=== PATIENT | male | born 1930 | race Caucasian/White ===

== ENCOUNTER 2017-03-22 23:19 | Emergency (ER) | payer MEDICARE, BC ==
[~2017-03-22] VITALS: Ht 177.8 cm; Wt 90.7 kg
--- NOTE | 2017-03-22 23:19 | NUR ---
PT BIB [facility], PER EMS PT BECAME ALTERED ACCORDING TO AROUND 2300. PT HAS NOTED LEFT SIDE DEFICITS, PT ACTIVELY VOMITING COFFEE GROUND EMESIS. DR NAJERA AT BEDSIDE. CODE STROKE CALLED. PT ARRIVED AT 2314, PT TO CT AT 2317.
--- NOTE | 2017-03-22 23:20 | NUR ---
PT ARRIVAL TIME: 2314 CALLED CODE STROKE: [address]: 2318 DELAY IN REGISTRATION. TOLD MOVIE SHOT CAMERAMAN CANT DO CT HEAD WITHOUT PT IN SYSTEM
[2017-03-22] MEDS ORDERED: ETOMIDATE 2 MG/ML VIAL IV ONE (23:22)
[2017-03-22] MEDS ORDERED: ROCURONIUM BROMIDE 50 MG/5 ML IV ONE (23:22)
--- NOTE | 2017-03-22 23:25 | NUR ---
PT BACK FROM CT. MD AT BEDSIDE.
--- NOTE | 2017-03-22 23:26 | NUR ---
CALLED [facility] FOR POSSIBLE INTUBATION
--- NOTE | 2017-03-22 23:29 | NUR ---
RT AT BEDSIDE
[2017-03-22] MEDS ORDERED: ONDANSETRON HCL/PF 4 MG/2 ML VIAL IVP ONE (23:30)
[2017-03-22] MEDS ORDERED: PANTOPRAZOLE 80 MG in IV NS 0.9% 500 ML IV ONE (23:30)
[2017-03-22] MEDS ORDERED: PANTOPRAZOLE 80 MG in IV NS 0.9% 100 ML IV ONE (23:30)
--- NOTE | 2017-03-22 23:30 | NUR ---
MD AT BEDSIDE FOR INTUBATION. SEE INTUBATION NOTES. RT AT BEDSIDE TO ASSIST.
--- NOTE | 2017-03-22 23:36 | NUR ---
SPOKE TO RADIOLOGIST DR. BAR AND WAS TOLD OF ACUTE ICH W/ MIDLINE SHIFT. INFO RELAYED TO DR. NAJERA WHO IS CURRENTLY INTUBATING THE PT.
[2017-03-22] MEDS ORDERED: ONDANSETRON HCL/PF 4 MG/2 ML VIAL ONE (23:38)
[2017-03-22] MEDS ORDERED: PROPOFOL 100 ML IV ONE (23:38)
--- NOTE | 2017-03-22 23:38 | NUR ---
RT AT BEDSIDE TO MANAGE VENT SETTINGS. RATE 16/TV 550/PEEP 5/ FIO2 100%.
--- NOTE | 2017-03-22 23:40 | NUR ---
XRAY AT BEDSIDE TO CHECK ET PLACEMENT PER MD. EMT AT BEDSIDE FOR EKG. LAB AT BEDSIDE.
[2017-03-22] MEDS ORDERED: PANTOPRAZOLE 40 MG VIAL ONE (23:46)
[2017-03-22 23:47] LABS: BASOPHILS # (AUTO) 0.1 /CMM (0.0-0.2); BASOPHILS % (AUTO) 0.5 % (0.0-2.0); EOSINOPHILS # (AUTO) 0.4 /CMM (0.0-0.7); HEMATOCRIT 42 % (39-51); LYMPHOCYTES # (AUTO) 8.2 /CMM (0.8-4.8); LYMPHOCYTES % (AUTO) 45.7 % (20.0-44.0); MEAN CORPUSCULAR HEMOGLOBIN 30 PG (26.0-33.0); MEAN CORPUSCULAR HGB CONC 31 g/dl (31.0-36.0); MEAN CORPUSCULAR VOLUME 96 fL (80-96); MONOCYTES # (AUTO) 1.4 /CMM (0.1-1.30); MONOCYTES % (AUTO) 8.1 % (2.0-12.0); NEUTROPHILS # (AUTO) 7.8 /CMM (1.8-8.9); NEUTROPHILS % (AUTO) 43.7 % (43.0-81.0); PLATELET COUNT (AUTO) 357 /CMM (150-450); RDW COEFFICIENT OF VARIATION 16.9 (11.5-15.0); RED BLOOD CELL COUNT(AUTO) 4.31 MIL/uL (4.5-6.0); WHITE BLOOD COUNT (AUTO) 17.9 K/uL (4.3-11.0)
[2017-03-22 23:58] LABS: INR 1.11 (0.87-1.13)
[2017-03-23] VITALS: BP 210/123
[2017-03-23] MEDS ORDERED: ETOMIDATE 2 MG/ML VIAL IV ONE
[2017-03-23] MEDS ORDERED: PROPOFOL 100 ML IV ONE
[2017-03-23] MEDS ORDERED: ROCURONIUM BROMIDE 100 MG/10 ML VIAL IV ONE
--- NOTE | 2017-03-23 | NUR ---
CALLED [facility] ER FOR EMTALA TRANSFER. SPOKE WITH KIMO ALMENDAREZ RN. NO AVAILABLE BEDS.
[2017-03-23 00:01] LABS: ALANINE AMINOTRANSFERASE 30 U/L (12-78); ALBUMIN 3.5 g/dL (3.4-5.0); ALKALINE PHOSPHATASE 126 U/L (46-116); ASPARTATE AMINOTRANSFERASE 23 U/L (15-37); BILIRUBIN,DIRECT 0.1 mg/dL (0.0-0.2); BILIRUBIN,TOTAL 0.4 mg/dL (0.2-1.0); CALCIUM, SERUM 8.5 mg/dL (8.5-10.1); CARBON DIOXIDE 31 mmol/L (21-32); CHLORIDE 103 mmol/L (98-107); CREATININE 1.8 mg/dL (0.6-1.3); GLUCOSE 177 mg/dL (74-106); LIPASE 464 U/L (73-393); SODIUM SERUM 145 mmol/L (136-145); TOTAL PROTEIN, SERUM 7.8 g/dL (6.4-8.2); UREA NITROGEN, BLOOD 30 mg/dL (7-18)
[2017-03-23 00:03] LABS: TROPONIN I 0.044 ng/mL (0.00-0.056)
--- NOTE | 2017-03-23 00:03 | NUR ---
SPOKE WITH FLOWER AT [facility]. HE WILL GET IN TOUCH WITH THEIR PHYSICAN DR KEY AND CALL BACK. FAXING FACE SHEET AND CT REPORT TO [phone].
[2017-03-23 00:04] LABS: POTASSIUM 2.6 mmol/L (3.5-5.1)
--- NOTE | 2017-03-23 00:16 | NUR ---
SPOKE WITH JEAN, NURSING CDL FLATBED TRUCK DRIVER ([phone]) AT [facility] TRANSFER. SHE WILL CONTACT NEUROSURGEON DR ATKINSON. FAXING FACE SHEET AND HEAD CT TO [phone]. Addendum: 03/23/17 at 0021 by GABRIEL NUMBER FOR JEAN IS [phone]
--- NOTE | 2017-03-23 00:17 | NUR ---
FLOWER CALLED BACK FROM [facility]. THEY ARE UNABLE TO ACCEPT DUE TO LACK OF ICU BEDS.
[2017-03-23] MEDS ORDERED: NICARDIPINE IN DEXTROSE,ISO-OS 200 ML IV ONE (00:24)
--- NOTE | 2017-03-23 00:26 | NUR ---
CALLED [facility] [phone], SPOKE WITH DONNA. PROVIDED PATIENT INFORMATION AND TRANSFERRED CALL TO DR AUGUSTUS NAJERA.
[2017-03-23] MEDS: LEVETIRACETAM (500MG) 1,000 MG in IV NS 0.9% 100 ML IV SCH ×2 (00:28→05:45)
--- NOTE | 2017-03-23 00:28 | NUR ---
CARDENE STARTED AT 5MG/HR PER MD NAJERA.
[2017-03-23] MEDS ORDERED: NICARDIPINE IN DEXTROSE,ISO-OS 200 ML IV PRN (00:30)
[2017-03-23] MEDS ORDERED: MANNITOL 12.5 GM/50 ML VIAL IV ONE (00:30)
[2017-03-23] MEDS ORDERED: PROTHROMBIN COMPLEX CONCENTR 500 UNIT VIAL IV ONE ×2 (00:30→01:30)
--- NOTE | 2017-03-23 00:31 | NUR ---
DONNA FROM [facility] CALLED BACK. THEY ARE ACCEPTING THE PATIENT. DR LIMA NEUROINTERVENTIONALIST IS ACCEPTING MD. FAXING FACE SHEET TO [phone]. PATIENT WILL BE A DIRECT ADMIT. WAITING FOR BED.
--- NOTE | 2017-03-23 00:32 | NUR ---
PATIENT WILL BE TRANSFERRED TO [facility]
[2017-03-23] MEDS ORDERED: MANNITOL 50 ML IV ONE (00:33)
--- NOTE | 2017-03-23 00:34 | NUR ---
[facility] PER PHILLIP NO AVAILABLE RNS.
--- NOTE | 2017-03-23 00:37 | NUR ---
INFORMED JEAN NURSING RECORDING ARTIST AT [place] THAT WE FOUND AN ACCEPTING FACILITY
--- NOTE | 2017-03-23 00:40 | NUR ---
CARDENE INCREASED TO 10MG/HR PER DR NAJERA.
[2017-03-23 00:43] LABS: CHOLESTEROL 152 mg/dL (<200); HDL CHOLESTEROL 46 mg/dL (40-60); LDL 76 mg/dL (0-99); TRIGLYCERIDES 219 mg/dL (30-150)
[2017-03-23] MEDS: Magnesium 1 GM/2 ML VIAL IV ONE ×2 (00:45→05:44)
[2017-03-23] MEDS: POTASSIUM CL. PREMIX PERIPHER. 50 ML IV SCH ×2 (00:45→05:45)
--- NOTE | 2017-03-23 00:50 | NUR ---
CARDENE TITRATED TO 5MG/HR PER DR NAJERA.
--- NOTE | 2017-03-23 00:53 | NUR ---
SPOKE WITH PHILLIP WITH [facility]. UNIT ON THE WAY 15-20 MINUTES CODE [address] NAJERA.
--- NOTE | 2017-03-23 00:55 | NUR ---
[facility] STOPPED PER DR NAJERA.
--- NOTE | 2017-03-23 01:00 | NUR ---
PATIENT GOING TO SURGICAL ICU BED 132E. NUMBER FOR REPORT [phone].
--- NOTE | 2017-03-23 01:35 | NUR ---
CARDENE RESTARTED AT 5MG/HR PER DR NAJERA.
--- NOTE | 2017-03-23 01:50 | NUR ---
[facility] STOPPED PER DR NAJERA.
--- NOTE | 2017-03-23 01:55 | NUR ---
CARDENE STARTED AGAIN AT 5MG/HR PER MD NAJERA ORDER
--- NOTE | 2017-03-23 02:05 | NUR ---
PER MD NAJERA ORDER CARDENE DROPPED TO 3MG/HR
[2017-03-23 02:10] VITALS: BP 103/69
--- NOTE | 2017-03-23 02:10 | NUR ---
PER MD NAJERA ORDER CARDENE STOPPED AT THIS TIME FOR BP BEING TO LOW
--- NOTE | 2017-03-23 02:30 | NUR ---
REPORT GIVEN TO [facility] NURSE FOR TRANSPORT OF PATIENT AND ANDR[facility]S. RT AND RN ON BOARD FOR TRANSFER TO [facility].
--- NOTE | 2017-03-23 03:00 | NUR ---
REPORT GIVEN TO VICKY MEREDITH AT [facility] FOR [facility].
--- NOTE | 2017-03-23 04:59 | NUR ---
POTASSIUM AND MAGNESIUM NOT REMOVED FROM OMNICELL. PT DID NOT RECEIVE THESE MEDICATIONS; DR. NAJERA AWARE WHO ENDORSED THE MEDICATIONS TO DR. RIVAS AT [facility]. DOCUMENTED GIVEN IN ERROR.
== END 2017-03-23 02:30 | disposition short-term general hospital (02) ==
LOC: ER 23:21
DX: I62.9 Nontraumatic intracranial hemorrhage, unspecified (principal); I10 Essential (primary) hypertension; I48.91 Unspecified atrial fibrillation; J96.92 Respiratory failure, unspecified with hypercapnia; E87.6 Hypokalemia; K92.2 Gastrointestinal hemorrhage, unspecified; Z79.01 Long term (current) use of anticoagulants
CPT/HCPCS: 36415; 70450-TC; 71010-TC; 80048-TC; 80061-TC; 80076-TC; 83690-TC; 84484-TC; 85025-TC; 85730-TC; 86850-TC; 87081-TC; A4606; C9113; C9132; J1953; J2150; J2405; J3490; J7030; J7040; J7050; Z7610